=== PATIENT | female | born 1945 | race Caucasian/White ===

== ENCOUNTER 2016-09-20 10:47 | Emergency (ER) | payer BC ==
[2016-09-20 10:54] VITALS: TEMP 97.5
--- NOTE | 2016-09-20 11:09 | CPEKG ---
Heart Rate: 61 RR Interval: 984 P-R Interval: 184 QRSD Interval: 82 QT Interval: 440 QTC Interval: 444 P Lyer[place]: 37 QRS Lyerly: -28 T Wave Lyerly: 2 EKG Severity - BORDERLINE ECG - EKG Impression: SINUS RHYTHM EKG Impression: LVH BY VOLTAGE Electronically Signed By: Luis M Wesley 21-Sep-2016 11:57:16
[2016-09-20] MEDS ORDERED: ONDANSETRON DISINTEGRATING 4 MG TAB PO ONE (11:18)
--- NOTE | 2016-09-20 11:53 | EDPHY ---
H & P Stated Complaint: upper chest and neck pain/throidectomy in jun/feels it is r/t Time Seen by Provider: 09/20/16 11:09 HPI/ROS: CHIEF COMPLAINT: Chronic incisional pain following thyroidectomy HISTORY OF PRESENT ILLNESS: The patient presents to the emergency department with complaints of chronic incisional pain following her thyroidectomy in June. The patient reportedly started taking some of her 's OxyContin for the symptoms. She is scheduled to return to [facility] for an evaluation by her initial surgeon later this week. Today after taking narcotic pain medication she developed some nausea prompting her visit to the emergency department today. The patient denies any chest pain or shortness of breath. She denies recent fall or trauma. She has no complaints of fever or myalgias. The patient states that she has been taking her levothyroxine. She reports she has had follow-up thyroid panels since her thyroidectomy. REVIEW OF SYSTEMS: A comprehensive 10 point review of systems is otherwise negative aside from elements mentioned in the history of present illness. Source: Patient Exam Limitations: No limitations - Personal History Current Tetanus/Diphtheria Vaccine: Yes - Medical/Surgical History Hx Asthma: No Hx Chronic Respiratory Disease: No Hx Diabetes: No Hx Cardiac Disease: No Hx Renal Disease: No Hx Cirrhosis: No Hx Alcoholism: No Hx HIV/AIDS: No Hx Splenectomy or Spleen Trauma: No Other PMH: HIGH CHOLES , OSTEO ARTRITIS HTN /thyroidectomy - Social History Smoking Status: Never smoked - Physical Exam Exam: General Appearance: Alert, no distress Eyes: Pupils equal and round no pallor or injection ENT, Mouth: Mucous membranes moist Neck: Postoperative incision is clean dry and intact, no hematoma, no palpable masses Respiratory: There are no retractions, lungs are clear to auscultation Cardiovascular: Regular rate and rhythm Gastrointestinal: Abdomen is soft and nontender, no masses, bowel sounds normal Neurological: A&O, normal motor function, normal sensory exam, normal cranial nerves Skin: Warm and dry, no rashes Musculoskeletal: Neck is supple nontender Extremities: symmetrical, full range of motion Constitutional: Initial Vital Signs Temperature (C) 36.4 C 09/20/16 10:51 Heart Rate 70 09/20/16 10:51 Respiratory Rate 17 09/20/16 10:51 Blood Pressure 172/71 H 09/20/16 10:51 O2 Sat (%) 97 09/20/16 10:51 O2 Delivery Mode Room Air Allergies/Adverse Reactions: No Known Allergies Allergy (Verified 09/20/16 10:50) Home Medications: Medication Instructions Recorded Fenofibrate 11/01/14 Levothyroxine 09/20/16 Pravastatin Sodium 09/20/16 Valsartan 09/20/16 Medical Decision Making - Diagnostics EKG Interpretation: EKG: Complete interpretation has been separately recorded in the [facility] archive. Summary impression: Sinus rhythm ED Course/Re-evaluation: The patient presents to the emergency department with nausea after taking narcotic pain medications. The patient has had some chronic incisional pain following her thyroidectomy. The patient's EKG demonstrates no evidence of ischemia. The patient did receive Zofran in the emergency department and is currently feeling much better. Her physical examination demonstrates no evidence of an obvious incisional hematoma, cellulitis or abscess. I do feel the patient can be discharged home with a prescription for some pain medications and anti medics. She does have a follow-up visit with her regular surgeon next week. Differential Diagnosis: Differential diagnosis considered includes cellulitis, abscess, hematoma, postoperative pain, nausea, arrhythmia, ACS - Data Points Medications Given: Discontinued Medications Ondansetron HCl (Zofran Odt) 4 mg PO EDNOW ONE Stop: 09/20/16 11:19 Last Admin: 09/20/16 11:21 Dose: 4 mg Departure - Departure Disposition: Home, Routine, Self-Care Clinical Impression: Incisional pain, Nausea Condition: Good Instructions: Acute Nausea and Vomiting (ED) Additional Instructions: 1. Zofran as needed for nausea. Oxycodone as needed for pain. 2. Please follow up as scheduled with your thyroid surgeon.
[2016-09-20 12:09] VITALS: BP 130/78; PULSE 54; RESP 15; O2SAT 96
== END 2016-09-20 12:27 | disposition home or self-care (01) ==
DX: G89.18 Other acute postprocedural pain (principal); R11.0 Nausea

== ENCOUNTER → 2016-12-17 | Outpatient (CLI) | payer BC | LOC: BMCIMAGING 16:48 | PROVIDERS: ATTEND Internal Medicine | DX: R15.9 Full incontinence of feces (principal) ==

== ENCOUNTER → 2018-03-17 | Outpatient (CLI) | payer BC | LOC: BMCIMAGING 11:16 | PROVIDERS: ATTEND Internal Medicine | DX: M81.0 Age-related osteoporosis without current pathological fracture (principal); E07.9 Disorder of thyroid, unspecified; Z78.0 Asymptomatic menopausal state ==